=== PATIENT | female | born 1990 | race African-American/Black ===

== ENCOUNTER 2021-11-30 15:07 | Outpatient (CLI) | payer OTHER | END 2021-11-30 16:32 | disposition home or self-care (01) | LOC: PRENATAL 15:07 | PROVIDERS: ATTEND Obstetrics & Gynecology Maternal & Fetal Medicine | DX: O35.0XX1 Maternal care for (suspected) central nervous system malformation in fetus, fetus 1 (principal); O35.3XX1 Maternal care for (suspected) damage to fetus from viral disease in mother, fetus 1; O98.512 Other viral diseases complicating pregnancy, second trimester; Z36.89 Encounter for other specified antenatal screening; Z3A.25 25 weeks gestation of pregnancy ==